=== PATIENT | male | born 1955 | race Caucasian/White ===

== ENCOUNTER 2016-10-31 08:26 | Emergency (ER) | payer BC, OTHER ==
[2016-10-31 08:34] VITALS: TEMP 98; BMI 28.3
--- NOTE | 2016-10-31 08:48 | PDOC ---
History of Present Illness - General Chief Complaint: Nasal Bleeding Stated Complaint: NOSE BLEEDING Time Seen by Provider: 10/31/16 08:27 History Source: Patient Exam Limitations: No Limitations - History of Present Illness Initial Comments: 10/31/16 08:34 This is a 61 yo M with a history of CAD s/p KS and stent presenting to the ER with a complaint of epistaxis According to patient's , he has a propensity to blow his nose really hard AND pick at himself This morning, he blew his nose very hard 4-5 times This resulted in bleeding from the left nare No other complaints - hematuria, hemetemsis, rectal bleeding No headache Pt became concerned when he was unable to stop his bleeding and came to the ER PMH: KS with stent x 2 PSH: trigger finger x 3 left hand Meds: Metoprolol, Aspirin, Atorvastatin, and an additional med (pt does not have a list) ALL: NKDA Social: and unemployed, Tobacco never GENERAL/CONSTITUTIONAL: No: fever, chills, weakness, loss of appetite. HEAD, EYES, EARS, NOSE AND THROAT: Yes: epistaxis No: change in vision, ear pain , CARDIOVASCULAR: No: chest pain, lightheadedness, palpitations, syncope RESPIRATORY: No: cough, shortness of breath, wheezing, hemoptysis, stridor. GASTROINTESTINAL: No: nausea, vomiting, diarrhea, abdominal cramping, rectal bleeding, constipation. GENITOURINARY: No: dysuria, hematuria, frequency, urgency, flank pain. MUSCULOSKELETAL: No: back pain, neck pain, joint pain, muscle swelling or pain SKIN : No: lesions, pallor, rash or easy bruising. NEUROLOGIC: No: headache, vertigo, paresthesias, weakness ENDOCRINE: No: unexplained weight gain or loss HEMATOLOGIC/LYMPHATIC: No: anemia, easy bleeding, swelling nodes. GENERAL: The patient is in no acute distress. HEAD: Normal with no signs of trauma. EYES: PERRLA, EOMI, sclera anicteric, conjunctiva clear. ENT: dried blood of the nare and over the mouth, no active bleeding noted, no septal hematoma NECK: Normal range of motion, supple without lymphadenopathy, JVD, or masses. LUNGS: Breath sounds equal, clear to auscultation bilaterally. No wheezes, and no crackles. HEART:Regular rate and rhythm, normal S1 and S2 without murmur, rub or gallop. ABDOMEN: Soft, nontender, normoactive bowel sounds. No guarding, no rebound. No masses palpable. EXTREMITIES: Normal range of motion, no edema. No clubbing or cyanosis. No erythema, or tenderness. NEUROLOGICAL: Cranial nerves II through XII grossly intact. Normal speech. No focal neurological deficits. MUSCULOSKELETAL: Back non-tender to palpation, no CVA tenderness SKIN: Warm, Dry, normal turgor, no rashes or lesions noted. Past History - Past Medical History Allergies/Adverse Reactions: Allergies Allergy/AdvReac Type Severity Reaction Status Date / Time No Known Allergies Allergy Verified 10/31/16 08:27 Home Medications: Ambulatory Orders Atorvastatin Ca [Lipitor] 40 mg PO DAILY 10/31/16 Lisinopril [Zestril] 2.5 mg PO DAILY 10/31/16 Metoprolol Succinate [Toprol Xl -] 25 mg PO DAILY 10/31/16 Prasugrel HCl [Effient] 5 mg PO DAILY 10/31/16 Anemia: No Asthma: No Cancer: No Cardiac Disorders: Yes ([place] 01/2014) CVA: No COPD: No CHF: No Dementia: No Diabetes: No GI Disorders: No Disorders: No HTN: No Hypercholesterolemia: Yes Liver Disease: No Seizures: No Thyroid Disease: No - Surgical History Abdominal Surgery: No Appendectomy: No Cardiac Surgery: Yes (STENTS X2 S/P [place]) Cholecystectomy: No Lung Surgery: No Neurologic Surgery: No Orthopedic Surgery: No - Psycho/Social/Smoking Cessation Hx Anxiety: No Suicidal Ideation: No Smoking History: Never smoked Information on smoking cessation initiated: No Hx Alcohol Use: No Drug/Substance Use Hx: No Substance Use Type: None *Physical Exam - Vital Signs Last Vital Signs Temp Pulse Resp BP Pulse Ox 98 F 106 H 16 130/93 100 10/31/16 08:27 10/31/16 08:27 10/31/16 08:27 10/31/16 08:27 10/31/16 08:27 ED Treatment Course - LABORATORY CBC & Chemistry Diagram: 10/31/16 09:25 Medical Decision Making - Medical Decision Making 10/31/16 08:48 Epistaxis which has resolved Will observe in the ER for more time until we are sure this will not return Pt counselled to AVOID any additional trauma to the nose (picking, blowing, sneezing forcefully) Pt asked to obtain a list of his meds and medical problems for his wallet Pt can follow up with PMD or return to the ER for any other concerns or complaints Clinical Impression: Epistaxis 10/31/16 09:13 Pt repeatedly blowing/sniffling States he feels lightheaded Placed on monitor immediately HR:74 O2=97 Will do cbc 10/31/16 09:14 Pt at this time refusing rapid rhino 10/31/16 10:23 Laboratory Tests 10/31/16 09:25 WBC 11.0 H D Hgb 13.5 D Hct 42.8 Plt Count 225 Neutrophils % 70.3 Lymphocytes % 21.6 D Pt agreeable to cautarization small area of septum cauterized Will monitor for another 15 minutes to observe if this has helped 10/31/16 12:25 Pt monitored for more than 1 hour No epistaxis however her then began oozing from the left nare again Pt asked to apply pressure as he still is refusing a rapid rhino (pt states he can not return to work with this object in his nose) Pt states he does not Call placed to Dr Wagner Will send to ENT Dr. Wagner is able to see this patient Pt is bringing him to see Dr. Wagner. Pt ambulatory out of the ER *DC/Admit/Observation/Transfer Diagnosis at time of Disposition: Epistaxis - Discharge Dispostion Disposition: HOME Condition at time of disposition: Stable Admit: No - Referrals Referrals: Devang Wagner MD [Staff Physician] - Rolo Archer MD [Primary Care Provider] - - Patient Instructions Printed Discharge Instructions: DI for Nosebleed, Nosebleeds (Alternative Therapy) Additional Instructions: Michael Wagner will see you TODAY at 2:30 You must be there before 2:15pm I am sorry that you had a nose bleed today Please remember to avoid any trauma to the area (blowing your nose, picking your nose or sneezing forcefully) for the next 24 -48 hours Please return to the ER if your symptoms recur Remember to create for yourself a list of your meds and medical problems (to keep in your wallet) - Post Discharge Activity Work/School Note: Back to Work
[2016-10-31] MEDS ORDERED: LIDO 2%/EPI 1:200000 PRESRVFRE (20 ML SDVIAL) ONE (09:08)
[2016-10-31 09:33] LABS: BASOPHIL 0.6 % (0-2.0); EOSINOPHIL 0.6 % (0-4.5); MCH 27.7 pg (25.7-33.7); MCHC 31.5 g/dl (32.0-35.9); MEAN CELL VOLUME 87.8 fl (80-96); MEAN PLT VOLUME 8.6 fl (7.5-11.1); NEUTROPHILS 70.3 % (42.8-82.8); PLATELET COUNT 225 K/MM3 (134-434); RDW 13.5 % (11.9-15.9)
[2016-10-31 11:34] VITALS: BP 101/73; PULSE 100
== END 2016-10-31 12:58 | disposition home or self-care (01) ==
LOC: SUPCPDRO 08:26 → FER 08:26
DX: R04.0 Epistaxis (principal); I25.2 Old myocardial infarction; E78.00 Pure hypercholesterolemia, unspecified; Z95.5 Presence of coronary angioplasty implant and graft; Z79.84 Long term (current) use of oral hypoglycemic drugs; Z79.82 Long term (current) use of aspirin
CPT/HCPCS: 36415; 85025; 99282-25

== ENCOUNTER 2016-10-31 15:03 | Emergency (ER) | payer BC ==
[2016-10-31 15:18] VITALS: TEMP 98; BMI 28.3
[2016-10-31] MEDS ORDERED: SODIUM CHLORIDE 1,000 ML IV ONE ×2 (15:37→16:28)
[2016-10-31] MEDS ORDERED: DIPHTH,PERTUSS(ACELL),TET 0.5 ML DISP.SYRIN IM ONE (15:37)
[2016-10-31 15:42] LABS: BASOPHIL 0.3 % (0-2.0); MCHC 31.5 g/dl (32.0-35.9); MEAN CELL VOLUME 88.9 fl (80-96); MEAN PLT VOLUME 9.3 fl (7.5-11.1); NEUTROPHILS 90.8 % (42.8-82.8); PLATELET COUNT 264 K/MM3 (134-434); RDW 14.3 % (11.9-15.9); WHITE BLOOD COUNT 18.9 K/mm3 (4.0-10.0)
--- NOTE | 2016-10-31 15:42 | PDOC ---
History of Present Illness - General History Source: Patient Exam Limitations: No Limitations - History of Present Illness Initial Comments: 10/31/16 15:42 The patient is a 61-year-old man, accompanied by spouse, with a significant past medical history of hypercholesterolemia, myocardial infarction x2 and coronary artery disease who presents to the emergency department for further evaluation of a sustained left frontal laceration s/p loss of consciousness today. As per patients , the patient was informed by his Ditcher, Dr. Gio Sparrow to stop his Efient medications yesterday. He reports that his last dose was yesterday morning and he did not take any today. He was in [facility] in [facility] for evaluation of left nasal epistaxis. Patient was ultimately discharged and sent over ENT Specialist, Dr. Ambrocio's office, for which he performed posterior nasal packing, which he tolerated well. No pain. He admits that during the procedure, he felt slightly lightheaded and was informed that he was slightly hypotensive. He left the office and his lightheadedness worsened as he leaned over the wall and closed his eyes and lost consciousness, injuring his head. He denies ever losing consciousness in the past. He states he woke up immediately after syncopal episode, approximately 5 seconds after. He admits he had nothing to eat all day. Patient current reports pain only upon the laceration site. Tetanus vaccination is not updated. He denies headache, dizziness, palpitations. He denies chest pain, shortness of breath, fever, chills, cough, visual changes, tongue biting, bowel/bladder incontinence. Allergies: None Known Past Surgical History: Stent placement x2. Social History: . Unemployed. Never smoked. No ETOH and recreational drug use. Primary Care Physician: Dr. Rolo Archer [phone]/ [phone] Ditcher: Dr. Gio Sparrow [phone] <Beata Lacey - Last Filed: 10/31/16 16:41> <Waldo Toribio - Last Filed: 10/31/16 17:10> - General Chief Complaint: Syncope/Near Syncope Stated Complaint: FALL Time Seen by Provider: 10/31/16 15:16 Past History <Beata Lacey - Last Filed: 10/31/16 16:41> - Past Medical History Anemia: No Asthma: No Cancer: No Cardiac Disorders: Yes ([place] 01/2014) CVA: No COPD: No CHF: No Dementia: No Diabetes: No GI Disorders: No Disorders: No HTN: No Hypercholesterolemia: Yes Liver Disease: No Seizures: No Thyroid Disease: No - Surgical History Abdominal Surgery: No Appendectomy: No Cardiac Surgery: Yes (STENTS X2 S/P [place]) Cholecystectomy: No Lung Surgery: No Neurologic Surgery: No Orthopedic Surgery: No - Psycho/Social/Smoking Cessation Hx Anxiety: No Suicidal Ideation: No Smoking History: Never smoked Hx Alcohol Use: No Drug/Substance Use Hx: No Substance Use Type: None <Waldo Toribio - Last Filed: 10/31/16 17:10> - Past Medical History Allergies/Adverse Reactions: Allergies Allergy/AdvReac Type Severity Reaction Status Date / Time No Known Allergies Allergy Verified 10/31/16 08:27 Home Medications: Ambulatory Orders Atorvastatin Ca [Lipitor] 40 mg PO DAILY 10/31/16 Lisinopril [Zestril] 2.5 mg PO DAILY 10/31/16 Metoprolol Succinate [Toprol Xl -] 25 mg PO DAILY 10/31/16 Prasugrel HCl [Effient] 5 mg PO DAILY 10/31/16 Review of Systems - Review of Systems Constitutional: No: Chills, Fever Respiratory: No: Cough, Shortness of Breath Cardiac (ROS): Yes: Syncope. No: Chest Pain, Edema, Palpitations ABD/GI: No: Diarrhea, Nausea, Vomiting Musculoskeletal: No: Back Pain, Joint Pain, Muscle Pain, Neck Pain Neurological: No: Headache, Weakness, Ataxia All Other Systems: Reviewed and Negative <Waldo Toribio - Last Filed: 10/31/16 17:10> *Physical Exam - Vital Signs Last Vital Signs Temp Pulse Resp BP Pulse Ox 98.0 F 89 18 113/68 100 10/31/16 15:14 10/31/16 15:14 10/31/16 15:14 10/31/16 15:14 10/31/16 15:14 - Physical Exam Comments: 10/31/16 15:43 General: Patient is alert and in no acute distress. Speech is clear and appropriate. Head: Atraumatic and nontender. HEENT: Pupils are equal round and reactive to light, extraocular movements are intact. The tympanic membranes are clear, no hemotympanum. No facial deformity/ tenderness, no septal hematoma. The oropharynx is clear. Neck: The trachea is midline, there is no stridor. There is no midline cervical spine tenderness, full range of motion of neck. Chest: Nontender, no ecchymosis or abrasions. Heart: S1-S2, regular rate and rhythm. No murmurs. Lungs: Clear to auscultation bilaterally. Symmetric chest rise. Abdomen: Soft/nontender/nondistended. Bowel sounds are normal. There is no abdominal or flank ecchymosis. Back/Pelvis: There is no midline spinal tenderness or step-off. Pelvis is stable and nontender. Extremities: There is no extremity deformity or joint swelling. No focal bony tenderness throughout. 2+ distal pulses throughout. Neuro: Alert and oriented x3. Cranial nerves II through XII are intact. 5 out of 5 motor strength x4 extremities. Xcgyra-vbfw-[id number] is intact. No pronator drift. Gait is stable. Skin: +There is an approximately 1.5 cm linear laceration above the left eyebrow. No abrasions/hematomas. Psych: Affect is appropriate. <Beata Lacey - Last Filed: 10/31/16 16:41> - Vital Signs Last Vital Signs Temp Pulse Resp BP Pulse Ox 98.0 F 89 18 113/68 100 10/31/16 15:14 10/31/16 15:14 10/31/16 15:14 10/31/16 15:14 10/31/16 15:14 <Waldo Toribio - Last Filed: 10/31/16 17:10> Heart Score/ECG Review #1 ECG reviewed & interpreted by me at: 15:41 General ECG Interpretation: Sinus Rhythm, Normal Rate (88), Normal Intervals, No acute ischemic changes (old inferior and lateral Q waves) <Waldo Toribio - Last Filed: 10/31/16 17:10> ED Treatment Course - LABORATORY CBC & Chemistry Diagram: 10/31/16 15:29 10/31/16 15:29 - RADIOLOGY Radiograph Interpretation: 10/31/16 16:27 EXAM: RAD/CHEST X-RAY PORTABLE IMPRESSION: Since 01/31/2015, the cardiac silhouette remains within normal limits in size with mild unfolding of the aortic arch and mild elevation of the right hemidiaphragm. The lung is clear. Mediastinum and visualized osseous structures appear intact. Notes made of lucency under the left hemidiaphragm likely air within the gastric fundus. <Beata Lacey - Last Filed: 10/31/16 16:41> - LABORATORY CBC & Chemistry Diagram: 10/31/16 15:29 10/31/16 15:29 - RADIOLOGY Radiology Studies Ordered: Category Date Time Status HEAD CT WITHOUT CONTRAST [CT] Stat CT Scan 10/31/16 15:17 Ordered CHEST X-RAY PORTABLE* [RAD] Stat Radiology 10/31/16 15:16 Ordered <Waldo Toribio - Last Filed: 10/31/16 17:10> Medical Decision Making - Medical Decision Making 10/31/16 16:30 A call was placed to patient's Ditcher, Dr. Gio Sparrow at [phone]. Informed by office that Ditcher, Dr. Justa Fox is erosion control coordinator. <Beata Lacey - Last Filed: 10/31/16 16:41> - Medical Decision Making 10/31/16 15:38 A portion of this note was documented by scribe services under my direction. I have reviewed the details of the note, within reason, and agree with the documentation with the following case summary and management plan written by me. 61-year-old male with history of CAD on Efient presents with syncopal episode. The patient was in his usual state of good health, this morning had epistaxis and was seen in the [place] ED, referred to ENT for packing, which he tolerated well and which controlled the bleeding. Patient started feeling lightheaded while at ENT office, when he got home and was waiting for the elevator, became more lightheaded and ultimately lost consciousness, falling to the ground and hitting the left side of his head. He awoke almost immediately, about 5 seconds after losing consciousness, and was brought to the ED. Complaining of only isolated discomfort to the laceration area, no other complaints whatsoever. Vital signs normal, blood pressure 113/80. Exam as noted, trauma exam unremarkable except for 1.5 cm left eyebrow laceration 61-year-old male with syncopal episode, likely orthostatic in the setting of epistaxis and minimal by mouth intake today, now with head injury on fall but neurologically intact. Patient on Effient, stopped yesterday morning. Low clinical suspicion for ACS or arrhythmia. Check CT head Labs, EKG IV fluids, provide food Update tetanus, laceration repair If above is within normal limits, will speak with Dr. Sparrow, but expect that he can be discharged. 10/31/16 16:18 White count 18.9, up from 11 this morning. Hemoglobin 12.6, stable from 13.5 this morning. Creatinine 1.4 with slightly elevated BUN, suggestive of dehydration which is consistent from the history. Trop negative. CXR wnl. CT head pending. 10/31/16 17:00 LACERATION REPAIR: The skin was prepped with Saline. 2% lidocaine was injected subcutaneously for local anesthesia. Normal saline lavage, high pressure, high volume was performed. 5-0 Nylon, simple interrupted sutures, x 3 were placed. Bacitracin and dry sterile dressing were applied. Patient was advised regarding signs and symptoms of infection that would indicate a need to see the doctor immediately, as well as instructions for suture removal. 10/31/16 17:01 CT head without acute injury/abnormality. Discussed case with Dr. Tim at bedside, covering Dr. Sparrow, who will review case/prior echo and assist with dispo. Patient was signed out to the oncoming ED physician to reassess the patient after IV fluids, f/u with Dr. Tim, and dispo accordingly. <Waldo Toribio - Last Filed: 10/31/16 17:10> *DC/Admit/Observation/Transfer - Attestations Scribe Attestion: 10/31/16 15:43 Documentation prepared by Beata Lacey, acting as medical customer service representative for Waldo Toribio MD. <Beata Lacey - Last Filed: 10/31/16 16:41> <Waldo Toribio - Last Filed: 10/31/16 17:10> Diagnosis at time of Disposition: Orthostatic syncope Laceration of eyebrow Qualifiers: Encounter type: initial encounter Laterality: left Qualified Code(s): S01.112A - Laceration without foreign body of left eyelid and periocular area, initial encounter - Referrals Referrals: Rolo Archer MD [Primary Care Provider] - - Patient Instructions Printed Discharge Instructions: DI for Orthostatic Hypotension, DI for Syncope in Adults (Fainting), DI for Laceration Repair -- Simple Additional Instructions: Activity as tolerated. Stay well hydrated. Blood tests today showed evidence of dehydration, so you were given IV fluids. Your overall blood level is within normal limits. There is no evidence of acute heart injury or arrhythmia. Three stitches were placed to fix the eyebrow laceration. Maintain current dressing for 24 hours, then bacitracin dressing changes twice daily for 5 days. Avoid soaking or scrubbing. Return to the ED in 5-7 days for suture removal. Your tetanus vaccine was updated today. Continue your medications as previously prescribed by your physician. STOP Effient as per Dr. Sparrow. You should follow up with Dr. Archer and Dr. Sparrow as soon as possible regarding today's emergency department visit. Return to the emergency department for any new or concerning symptoms, particularly severe headache, chest pain or persistent light-headedness, redness or swelling or pus or bleeding from the laceration.
[2016-10-31 16:08] LABS: CALCIUM 8.5 mg/dL (8.5-10.1); INR 1.23 (0.82-1.09); PROTHROMBIN TIME (PATIENT) 13.6 SEC (9.98-11.88)
[2016-10-31 16:13] LABS: BILIRUBIN,TOTAL 1.3 mg/dL (0.2-1.0); CREATININE 1.4 mg/dL (0.7-1.3); TOT PROT 6.7 g/dl (6.4-8.2); TROPONIN I 0.02 ng/ml (0.00-0.05)
--- NOTE | 2016-10-31 17:40 | CONSULT ---
Cardiology Consult (text) - Consultation Consultation Note: CC: syncope 61-year-old with h/o CAD s/p inferior NV 01/2015 and PCI to mRCA and OM1 ( preserved EF - residual 70-80% mLAD lesion) and HL p/w syncopal episode c/b laceration of forehead after severe epistaxis today. Evaluated at [place] [facility] this morning for significant epistaxis, was sent to ENT afterwards where he had cauterization and bleeding stopped. Throughout the day was experiencing intermittent lightheadedness, predominantly exacerbated by going from sitting to standing or with prolonged walking. BP noted to be slightly low at ENT visit. On returning home after ENT visit, he had worsened dizziness and syncopal episode with + brief LOC. Episode was witnessed and he was unconscious for a few seconds. No prior history of presyncope or syncope. [place] in his usual state of health until this morning. No f/c/s, n/v/d, cough, congestion, myalgias, visual disturbances. No cp, palps, sob, orthopnea, pnd, le edema, claudication, recent decrease in functional capacity. Did not take his asa or effient today. IN ER has received IVF. Head CT negative and stitches placed to forehead laceration . cards: Dr. Sparrow PMx/Past Surgical History: per hpi Social History: . Never smoked. No ETOH and recreational drug use. fam hx: No family hx of heart disease ros: per hpi Ambulatory Orders Atorvastatin Ca [Lipitor] 40 mg PO DAILY 10/31/16 Lisinopril [Zestril] 2.5 mg PO DAILY 10/31/16 Metoprolol Succinate [Toprol Xl -] 25 mg PO DAILY 10/31/16 Prasugrel HCl [Effient] 5 mg PO DAILY 10/31/16 Vital Signs - 24 hr 10/31/16 15:14 Temperature 98.0 F Pulse Rate 89 Respiratory 18 Rate Blood Pressure 113/68 O2 Sat by Pulse 100 Oximetry (%) Intake & Output 10/29/16 10/30/16 10/31/16 11/01/16 07:59 07:59 07:59 07:59 Weight 170 lb NAD, calm JVD flat, neck supple CTAB, nl effort RRR nl s1, s2 no m/r/g + bs soft nt nd ext without e/c/c aaox3 no carotid bruits + dp/pt CBC, BMP 10/31/16 15:29 10/31/16 15:29 Laboratory Tests 10/31/16 10/31/16 10/31/16 09:25 15:29 15:29 WBC 11.0 H D INR 1.23 H Total Bilirubin 1.3 H AST 13 L D ALT 23 D Alkaline Phosphatase 63 Creatine Kinase 148 Troponin I 0.02 D Albumin 4.0 EKG: NSR, nl axis/intervals. Slighly peaked t waves anteriorly. Inferior and lateral q waves and t wave abnormalities. (no change from prior office EKG from 08/2016) tele: NSR. CXR: clear lung guevara Recent stress echo 06/2016: 10 METS. Prior inferior infarct, no inducible ischemia. 61-year-old with h/o CAD s/p inferior NV 01/2015 and PCI to mRCA and OM1 ( preserved EF - residual 70-80% mLAD lesion) and HL p/w syncopal episode c/b laceration of forehead after severe epistaxis today. syncope - likely related to epistaxis and volume depletion. - EKG without ischemic changes, CE neg x 1. No events on telemetry. CAD s/p inferior NV 01/2015 and PCI to mRCA and OM1 (preserved EF - residual 70- 80% mLAD lesion) - In light of severe epistaxis would stop effient and continue ASA therapy alone. Dr. Sparrow aware. - No signs of ACS as mentioned above. - con't statin, bb, acei. Close monitoring of bp at home, if dizziness persists should discuss with outpatient braiding machine operator regarding need to hold anti -hypertensives. HL - con't home statin Would obtain orthostatic vitals and ambulate patient after IVF done infusing. If orthostatics negative and dizziness has resolved, ok to d/c from CV perspective with outpatient cardiology follow up.
--- NOTE | 2016-10-31 18:31 | PDOC ---
*Physical Exam - Vital Signs Last Vital Signs Temp Pulse Resp BP Pulse Ox 98.0 F 89 18 113/68 100 10/31/16 15:14 10/31/16 15:14 10/31/16 15:14 10/31/16 15:14 10/31/16 15:14 ED Treatment Course - LABORATORY CBC & Chemistry Diagram: 10/31/16 15:29 10/31/16 15:29 - ADDITIONAL ORDERS Additional order review: Laboratory Results 10/31/16 10/31/16 15:29 15:29 INR 1.23 H Sodium 139 Potassium 4.1 Chloride 104 Carbon Dioxide 23 Anion Gap 12 BUN 43 H D Creatinine 1.4 H D Creat Clearance w eGFR 51.52 Random Glucose 205 H D Calcium 8.5 Total Bilirubin 1.3 H AST 13 L D ALT 23 D Alkaline Phosphatase 63 Creatine Kinase 148 Troponin I 0.02 D Total Protein 6.7 Albumin 4.0 10/31/16 15:29 RBC 4.48 MCV 88.9 MCHC 31.5 L RDW 14.3 MPV 9.3 Neutrophils % 90.8 H Lymphocytes % 5.6 L Monocytes % 3.3 L Eosinophils % 0.0 Basophils % 0.3 - Medications Given in the ED: ED Medications Discontinued Medications Generic Name Dose Route Start Last Admin Trade Name Freq PRN Reason Stop Dose Admin Diphtheria/Tetanus/Acell Pertussis 0.5 ml 10/31/16 15:37 10/31/16 16:05 Boostrix - IM 10/31/16 15:38 0.5 ml .ONCE ONE Administration Sodium Chloride 1,000 mls @ 1,000 mls/hr 10/31/16 15:37 10/31/16 15:54 Normal Saline - IV 10/31/16 16:36 1,000 mls/hr ONCE ONE Administration Sodium Chloride 1,000 mls @ 1,000 mls/hr 10/31/16 16:28 10/31/16 16:32 Normal Saline - IV 10/31/16 17:27 1,000 mls/hr ONCE ONE Administration Medical Decision Making - Medical Decision Making 10/31/16 18:30 Sign-out received from outgoing Emergency Physician Dr. Toribio Pt interviewed and examined Ancillary studies reviewed Case discussed in detail with oncoming Emergency Physician including history, physical exam and ancillary studies. Vital Signs Temp Pulse Resp BP Pulse Ox 98.0 F 89 18 113/68 100 10/31/16 15:14 10/31/16 15:14 10/31/16 15:14 10/31/16 15:14 10/31/16 15:14 Case discussed with global compensation director Dr. Mark. The patient is cleared from her perspective. She requests orthostatics. It is negative here after IVF. Patient ambulated without any symptoms. Leukocytosis is likely reactive. I had instructed the patient to return to ED if there are any further episodes. Pt verbalizes understanding and agrees with plan. I discussed the physical exam findings, ancillary test results and final diagnoses with the patient. I answered all of the patient's questions. The patient was satisfied with the care received and felt comfortable with the discharge plan and treatment plan. The patient will call their primary care physician within 24 hours to arrange follow-up and will return to the Emergency Department with any new, persistant or worsening symptoms. *DC/Admit/Observation/Transfer Diagnosis at time of Disposition: Orthostatic syncope Laceration of eyebrow Qualifiers: Encounter type: initial encounter Laterality: left Qualified Code(s): S01.112A - Laceration without foreign body of left eyelid and periocular area, initial encounter - Discharge Dispostion Disposition: HOME Condition at time of disposition: Improved - Referrals Referrals: Rolo Archer MD [Primary Care Provider] - - Patient Instructions Printed Discharge Instructions: DI for Syncope in Adults (Fainting), DI for Orthostatic Hypotension, DI for Laceration Repair -- Simple Additional Instructions: Activity as tolerated. Stay well hydrated. Blood tests today showed evidence of dehydration, so you were given IV fluids. Your overall blood level is within normal limits. There is no evidence of acute heart injury or arrhythmia. Three stitches were placed to fix the eyebrow laceration. Maintain current dressing for 24 hours, then bacitracin dressing changes twice daily for 5 days. Avoid soaking or scrubbing. Return to the ED in 5-7 days for suture removal. Your tetanus vaccine was updated today. Continue your medications as previously prescribed by your physician. STOP Effient as per Dr. Sparrow. You should follow up with Dr. Archer and Dr. Sparrow as soon as possible regarding today's emergency department visit. Return to the emergency department for any new or concerning symptoms, particularly severe headache, chest pain or persistent light-headedness, redness or swelling or pus or bleeding from the laceration. - Post Discharge Activity
[2016-10-31 18:51] VITALS: BP 147/85; PULSE 83
--- NOTE | 2016-10-31 23:54 | EKG ---
Test Reason : Blood Pressure : / mmHG Vent. Rate : 088 BPM Atrial Rate : 088 BPM P-R Int : 130 ms QRS Dur : 086 ms QT Int : 354 ms P-R-T Axes : 047 -18 002 degrees QTc Int : 428 ms NORMAL SINUS RHYTHM INFERIOR INFARCT (CITED ON OR BEFORE 01-FEB-2015) ABNORMAL ECG WHEN COMPARED WITH ECG OF 01-FEB-2015 09:14, NO SIGNIFICANT CHANGE WAS FOUND Confirmed by JOAN GALLAGHER, ALEJANDRA ([id number]) on 10/31/2016 11:54:30 PM Referred By: Confirmed By:ALEJANDRA FRANCO MD
== END 2016-10-31 18:55 | disposition home or self-care (01) ==
LOC: JER 15:03
PROC: 08QPXZZ Repair Left Upper Eyelid, External Approach (ICD-10-PCS; principal; 2016-10-31)
DX: S01.112A Laceration without foreign body of left eyelid and periocular area, initial encounter (principal); I95.1 Orthostatic hypotension; E78.00 Pure hypercholesterolemia, unspecified; I25.2 Old myocardial infarction; Z95.5 Presence of coronary angioplasty implant and graft
CPT/HCPCS: 36415; 70450-TC; 71010-TC; 80053; 82550; 84484; 85025; 85610; 90715; 93005; 93010; 99284-25

== ENCOUNTER 2016-12-09 14:58 | Emergency (ER) | payer BC ==
[2016-12-09 15:05] VITALS: BP 144/63; PULSE 93; TEMP 98; BMI 28.6
[2016-12-09] MEDS ORDERED: SILVER NITRATE 75% APPLIC STCK 1 PKT EACH ONE (15:28)
[2016-12-09] MEDS ORDERED: SILVER NITRATE 75% APPLIC STCK 1 PKT EACH TP ONE (15:30)
--- NOTE | 2016-12-09 15:39 | PDOC ---
History of Present Illness - General Stated Complaint: SEES BLOOD IN HIS NOSE Time Seen by Provider: 12/09/16 15:13 History Source: Patient Exam Limitations: No Limitations - History of Present Illness Initial Comments: 12/09/16 15:31 61 yr male with history of bloody nose last month saw ENT saturday had cautery and gel placed for small nose bleed. Pt here today because he noticed some slight oozing of blood is concerned . no headache no active bleeding now. Pt is on blood thinners. Past History - Past Medical History Allergies/Adverse Reactions: Allergies Allergy/AdvReac Type Severity Reaction Status Date / Time No Known Allergies Allergy Verified 12/09/16 15:05 Home Medications: Ambulatory Orders Atorvastatin Ca [Lipitor] 40 mg PO DAILY 10/31/16 Lisinopril [Zestril] 2.5 mg PO DAILY 10/31/16 Metoprolol Succinate [Toprol Xl -] 25 mg PO DAILY 10/31/16 Prasugrel HCl [Effient] 5 mg PO DAILY 10/31/16 Aspirin [Aspirin EC] 81 mg PO ASDIR 12/09/16 Anemia: No Asthma: No Cancer: No Cardiac Disorders: Yes ([place] 01/2014) CVA: No COPD: No CHF: No Dementia: No Diabetes: No GI Disorders: No Disorders: No HTN: No Hypercholesterolemia: Yes Liver Disease: No Seizures: No Thyroid Disease: No - Surgical History Abdominal Surgery: No Appendectomy: No Cardiac Surgery: Yes (STENTS X2 S/P [place]) Cholecystectomy: No Lung Surgery: No Neurologic Surgery: No Orthopedic Surgery: No - Psycho/Social/Smoking Cessation Hx Anxiety: No Suicidal Ideation: No Smoking History: Never smoked Information on smoking cessation initiated: No Hx Alcohol Use: No Drug/Substance Use Hx: No Substance Use Type: None *Physical Exam - Vital Signs Last Vital Signs Temp Pulse Resp BP Pulse Ox 98 F 93 H 18 144/63 98 12/09/16 15:01 12/09/16 15:01 12/09/16 15:01 12/09/16 15:01 12/09/16 15:01 - Physical Exam General Appearance: Yes: Nourished, Appropriately Dressed HEENT: positive: EOMI, MARISSA, TMs Normal, Pharynx Normal, Nasal Congestion, Other (scant ooze from left nare ) Neck: positive: Supple Respiratory/Chest: positive: Lungs Clear, Normal Breath Sounds Cardiovascular: positive: Regular Rhythm, Regular Rate Gastrointestinal/Abdominal: positive: Normal Bowel Sounds, Soft Extremity: positive: Normal Capillary Refill, Normal Inspection, Normal Range of Motion Integumentary: positive: Normal Color, Dry, Warm Neurologic: positive: Fully Oriented, Alert, Normal Mood/Affect, Normal Response , Motor Strength 5/5 Procedures - Additional Procedures Progress: 12/09/16 15:41 silver nitrate stick placed to left nare, mild ooze noted, small Medical Decision Making - Medical Decision Making 12/09/16 15:41 cc: nose bleeding will cautery left nare small area of bright red blood oozing pt has f/u apt tomorrow with ENT I have discussed in detail with pt and his how to care for nosebleed at home all questions asked and answered before discharge pt stable and satisfied with care at dc. *DC/Admit/Observation/Transfer Diagnosis at time of Disposition: Epistaxis - Discharge Dispostion Disposition: HOME Condition at time of disposition: Good - Referrals Referrals: Rolo Archer MD [Primary Care Provider] - - Patient Instructions Printed Discharge Instructions: DI for Nosebleed Additional Instructions: nothing in the nose except saline spray use tonight follow with tomorrow as planned return if any worsening symptoms
== END 2016-12-09 15:41 | disposition home or self-care (01) ==
LOC: JERFT 14:58
PROC: 0W3Q7ZZ Control Bleeding in Respiratory Tract, Via Natural or Artificial Opening (ICD-10-PCS; principal; 2016-12-09)
DX: R04.0 Epistaxis (principal); I25.2 Old myocardial infarction; Z95.5 Presence of coronary angioplasty implant and graft; E78.00 Pure hypercholesterolemia, unspecified; Z79.01 Long term (current) use of anticoagulants
CPT/HCPCS: 99281-25

== ENCOUNTER 2016-12-11 07:13 | Emergency (ER) | payer BC ==
[2016-12-11 07:31] VITALS: BMI 28.6
--- NOTE | 2016-12-11 07:42 | PDOC ---
History of Present Illness - General History Source: Patient Exam Limitations: No Limitations - History of Present Illness Initial Comments: 12/11/16 08:00 The patient is a 61 year old male, with a significant past medical history of CAD, [place] (2013) s/p cardiac stents (x2) and HLD, who presents to the emergency department with epistaxis onset last night. The patient notes that he has an appointment to see the ENT today at 8:50am. This is the patient's 3rd visit within the last month for epistaxis. In his first visit on 10/31/2016, he was referred to the ENT Dr. Eckert who cauterized the active bleeding site, helping to stop the bleeding. He notes that he bought an air purifier yesterday. The patient denies chest pain, shortness of breath, headache and dizziness. Denies fever, chills, nausea, vomit, diarrhea and constipation. Allergies: None Past surgical history: Cardiac Stents (x2) Social history: No alcohol, tobacco or drug use reported PMD - Dr. Rolo Archer <Mark Gordon - Last Filed: 12/11/16 07:59> - General History Source: Patient Exam Limitations: No Limitations <Rosa Maria Randall - Last Filed: 12/11/16 08:17> - General Chief Complaint: Nasal Bleeding Stated Complaint: NOSEBLEED Time Seen by Provider: 12/11/16 07:34 Past History <Mark Gordon - Last Filed: 12/11/16 07:59> - Past Medical History Anemia: No Asthma: No Cancer: No Cardiac Disorders: Yes ([place] 01/2014) CVA: No COPD: No CHF: No Dementia: No Diabetes: No GI Disorders: No Disorders: No HTN: No Hypercholesterolemia: Yes Liver Disease: No Seizures: No Thyroid Disease: No Other medical history: nose bleed - Surgical History Abdominal Surgery: No Appendectomy: No Cardiac Surgery: Yes (STENTS X2 S/P [place]) Cholecystectomy: No Lung Surgery: No Neurologic Surgery: No Orthopedic Surgery: No - Psycho/Social/Smoking Cessation Hx Anxiety: No Suicidal Ideation: No Smoking History: Never smoked Information on smoking cessation initiated: No Hx Alcohol Use: No Drug/Substance Use Hx: No Substance Use Type: None <Rosa Maria Randall - Last Filed: 12/11/16 08:17> - Past Medical History Allergies/Adverse Reactions: Allergies Allergy/AdvReac Type Severity Reaction Status Date / Time No Known Allergies Allergy Verified 12/11/16 07:19 Home Medications: Ambulatory Orders Atorvastatin Ca [Lipitor] 40 mg PO DAILY 10/31/16 Lisinopril [Zestril] 2.5 mg PO DAILY 10/31/16 Metoprolol Succinate [Toprol Xl -] 25 mg PO DAILY 10/31/16 Prasugrel HCl [Effient] 5 mg PO DAILY 10/31/16 Aspirin [Aspirin EC] 81 mg PO ASDIR 12/09/16 Review of Systems - Review of Systems Able to Perform ROS?: Yes Comments:: 12/11/16 08:00 GENERAL/CONSTITUTIONAL: No fever or chills. No weakness. HEAD, EYES, EARS, NOSE AND THROAT: +Epistaxis. No change in vision. No ear pain or discharge. No sore throat. CARDIOVASCULAR: No chest pain or shortness of breath RESPIRATORY: No cough, wheezing, or hemoptysis. GASTROINTESTINAL: No nausea, vomiting, diarrhea or constipation. SKIN: No rash NEUROLOGIC: No headache, vertigo, loss of consciousness, or change in strength/ sensation. ENDOCRINE: No increased thirst. No abnormal weight change HEMATOLOGIC/LYMPHATIC: No anemia, easy bleeding, or history of blood clots. ALLERGIC/IMMUNOLOGIC: No hives or skin allergy. <Mark Gordon - Last Filed: 12/11/16 07:59> *Physical Exam - Vital Signs Last Vital Signs Temp Pulse Resp BP Pulse Ox 109 H 18 162/90 100 12/11/16 07:19 12/11/16 07:19 12/11/16 07:19 12/11/16 07:19 - Physical Exam Comments: 12/11/16 08:01 GENERAL: Awake, alert, and fully oriented, in no acute distress HEAD: No signs of trauma, normocephalic, atraumatic EYES: PERRLA, EOMI, sclera anicteric, conjunctiva clear ENT: Auricles normal inspection, hearing grossly normal, nares patent, oropharynx clear without exudates. Dry blood in bilateral nares and mouth, no active bleeding. NECK: Normal ROM, supple, no lymphadenopathy, JVD, or masses LUNGS: No distress, speaks full sentences, clear to auscultation bilaterally HEART: Regular rate and rhythm, normal S1 and S2, no murmurs, rubs or gallops, peripheral pulses normal and equal bilaterally. EXTREMITIES: Normal inspection, Normal range of motion, no edema. No clubbing or cyanosis. NEUROLOGICAL: Cranial nerves II through XII grossly intact. Normal speech, normal gait, no focal sensorimotor deficits SKIN: Warm, Dry, normal turgor, no rashes or lesions noted. <Mark Gordon - Last Filed: 12/11/16 07:59> - Vital Signs Last Vital Signs Temp Pulse Resp BP Pulse Ox 109 H 18 162/90 100 12/11/16 07:19 12/11/16 07:19 12/11/16 07:19 12/11/16 07:19 <Rosa Maria Randall - Last Filed: 12/11/16 08:17> Medical Decision Making - Medical Decision Making 12/11/16 07:42 A portion of this note was documented by scribe services under my direction. I have reviewed the details of the note, within reason, and agree with the documentation with the following case summary and management plan written by me. Nursing documentation reviewed and incorporated into medical decision making 12/11/16 08:15 This is a 61 yo M with a history of CAD s/p stent on Effient with recurrent epistaxis Pt has an appointment with Dr eckert in 30 minutes Came to the ER because his nose started bleeding this morning No lightheadedness, no chest pain Compressive device placed on pt nose No bleeding noticed Repeat BP: Discharge to Dr Eckert' office now clinical impression: Epistaxis <Rosa Maria Randall - Last Filed: 12/11/16 08:17> *DC/Admit/Observation/Transfer - Attestations Scribe Attestion: 12/11/16 08:00 Documentation prepared by Mark Gordon, acting as medical assistant dermatology for Rosa Maria Randall MD <Mark Gordon - Last Filed: 12/11/16 07:59> - Discharge Dispostion Admit: No <Rosa Maria Randall - Last Filed: 12/11/16 08:17> Diagnosis at time of Disposition: Epistaxis - Discharge Dispostion Disposition: HOME Condition at time of disposition: Stable - Referrals Referrals: Rolo Archer MD [Primary Care Provider] - Gunnar Ambrocio MD [Staff Physician] - - Patient Instructions Printed Discharge Instructions: DI for Nosebleed, Nosebleeds (Alternative Therapy)
[2016-12-11 08:15] VITALS: BP 124/88; PULSE 90
== END 2016-12-11 08:26 | disposition home or self-care (01) ==
LOC: JER 07:13
DX: R04.0 Epistaxis (principal); I25.10 Atherosclerotic heart disease of native coronary artery without angina pectoris; Z95.5 Presence of coronary angioplasty implant and graft; I25.2 Old myocardial infarction; E78.00 Pure hypercholesterolemia, unspecified; Z79.01 Long term (current) use of anticoagulants
CPT/HCPCS: 99282-25

== ENCOUNTER 2016-12-11 09:40 | Emergency (ER) | payer BC ==
--- NOTE | 2016-12-11 09:48 | PDOC ---
History of Present Illness - General History Source: Patient, EMS Exam Limitations: No Limitations - History of Present Illness Initial Comments: 12/11/16 09:59 The patient is a 61 year old male, with a significant past medical history of CAD, [place] (2013) s/p cardiac stents (x2) and HLD, who presents to the emergency department with low blood pressure. The patient was recently seen this morning for epistaxis and was sent over to Dr. Eckert office (ENT) for evaluation. The patient got the nose bleed packed and he currently has no bleeding. Once the packing was done, his blood pressure was 74 systolic and EMS was contacted to bring the patient to the ED for evaluation. On route to the ED the patient's blood pressure was 132/75. The patient denies chest pain, shortness of breath, headache and dizziness. Allergies: None Past surgical history: Cardiac Stents (x2) Social history: No alcohol, tobacco or drug use reported PMD - Dr. Rolo Archer <Mark Gordon - Last Filed: 12/11/16 09:58> - General History Source: Patient Exam Limitations: No Limitations <Rosa Maria Randall - Last Filed: 12/11/16 15:34> - General Stated Complaint: SYNCOPE Past History <Mark Gordon - Last Filed: 12/11/16 09:58> - Past Medical History Anemia: No Asthma: No Cancer: No Cardiac Disorders: Yes ([place] 01/2014) CVA: No COPD: No CHF: No Dementia: No Diabetes: No GI Disorders: No Disorders: No HTN: No Hypercholesterolemia: Yes Liver Disease: No Seizures: No Thyroid Disease: No - Surgical History Abdominal Surgery: No Appendectomy: No Cardiac Surgery: Yes (STENTS X2 S/P [place]) Cholecystectomy: No Lung Surgery: No Neurologic Surgery: No Orthopedic Surgery: No - Psycho/Social/Smoking Cessation Hx Anxiety: No Suicidal Ideation: No Smoking History: Never smoked Hx Alcohol Use: No Drug/Substance Use Hx: No Substance Use Type: None <Rosa Maria Randall - Last Filed: 12/11/16 15:34> - Past Medical History Allergies/Adverse Reactions: Allergies Allergy/AdvReac Type Severity Reaction Status Date / Time No Known Allergies Allergy Verified 12/11/16 07:19 Home Medications: Ambulatory Orders Atorvastatin Ca [Lipitor] 40 mg PO DAILY 10/31/16 Lisinopril [Zestril] 2.5 mg PO DAILY 10/31/16 Metoprolol Succinate [Toprol Xl -] 25 mg PO DAILY 10/31/16 Prasugrel HCl [Effient] 5 mg PO DAILY 10/31/16 Aspirin [Aspirin EC] 81 mg PO ASDIR 12/09/16 Review of Systems - Review of Systems Able to Perform ROS?: Yes Comments:: 12/11/16 09:59 GENERAL/CONSTITUTIONAL: No fever or chills. No weakness. HEAD, EYES, EARS, NOSE AND THROAT: No change in vision. No ear pain or discharge. No sore throat. CARDIOVASCULAR: No chest pain or shortness of breath RESPIRATORY: No cough, wheezing, or hemoptysis. GASTROINTESTINAL: No nausea, vomiting, diarrhea or constipation. GENITOURINARY: No dysuria, frequency, or change in urination. MUSCULOSKELETAL: No joint or muscle swelling or pain. No neck or back pain. SKIN: No rash NEUROLOGIC: No headache, vertigo, loss of consciousness, or change in strength/ sensation. ENDOCRINE: No increased thirst. No abnormal weight change HEMATOLOGIC/LYMPHATIC: No anemia, easy bleeding, or history of blood clots. ALLERGIC/IMMUNOLOGIC: No hives or skin allergy. <Mark Gordon - Last Filed: 12/11/16 09:58> *Physical Exam - Vital Signs Last Vital Signs Temp Pulse Resp BP Pulse Ox 97.6 F 96 H 18 119/85 96 12/11/16 09:49 12/11/16 09:49 12/11/16 09:49 12/11/16 09:49 12/11/16 09:49 - Physical Exam Comments: 12/11/16 09:59 GENERAL: Awake, alert, and fully oriented, in no acute distress HEAD: No signs of trauma, normocephalic, atraumatic EYES: PERRLA, EOMI, sclera anicteric, conjunctiva clear ENT: Auricles normal inspection, hearing grossly normal, nares patent, oropharynx clear without exudates. Moist mucosa NECK: Normal ROM, supple, no lymphadenopathy, JVD, or masses LUNGS: No distress, speaks full sentences, clear to auscultation bilaterally HEART: Regular rate and rhythm, normal S1 and S2, no murmurs, rubs or gallops, peripheral pulses normal and equal bilaterally. ABDOMEN: Soft, nontender, normoactive bowel sounds. No guarding, no rebound. No masses EXTREMITIES: Normal inspection, Normal range of motion, no edema. No clubbing or cyanosis. NEUROLOGICAL: Cranial nerves II through XII grossly intact. Normal speech, normal gait, no focal sensorimotor deficits SKIN: Warm, Dry, normal turgor, no rashes or lesions noted. <Mark Gordon - Last Filed: 12/11/16 09:58> ED Treatment Course - LABORATORY CBC & Chemistry Diagram: 12/11/16 13:58 12/11/16 13:58 <Rosa Maria Randall - Last Filed: 12/11/16 15:34> Medical Decision Making - Medical Decision Making 12/11/16 09:47 A portion of this note was documented by scribe services under my direction. I have reviewed the details of the note, within reason, and agree with the documentation with the following case summary and management plan written by me. Nursing documentation reviewed and incorporated into medical decision making 12/11/16 10:03 This is a 61-year-old male with a history of coronary artery disease status post [place] and stents 2, resumed on his Effient 2 weeks ago who presented to the emergency department with epistaxis. He was seen by Dr. eckert today in the office, unable to cauterize patient was packed. Apparently during the procedure he became flushed, felt lightheaded, blood pressure obtained and was noted to be 74 systolic. Within 2 minutes patient's systolic blood pressure increased to 94. EMS was contacted given patient's prior syncopal events status post cauterization. Upon EMS arrival patient's systolic blood pressure was 134. Patient states he feels well. No chest pain, no shortness of breath, no palpitations, no focal weakness or numbness. Patient has no bleeding. Patient seems to have vasovagal again. 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 Will discharge to follow-up with Dr. Sparrow 12/11/16 11:43 Pt orthostatic Will give bolus NS 12/11/16 15:29 Pt remains orthostatic Will repeat NS bolus Will check labs Laboratory Tests 10/31/16 10/31/16 12/11/16 15:29 15:29 13:58 WBC 18.9 H 16.2 H Hgb 12.6 12.7 Hct 39.9 39.2 Plt Count 264 256 BUN 43 H D Creatinine 1.4 H D 12/11/16 13:58 WBC Hgb Hct Plt Count BUN 33 H D Creatinine 1.0 D Labs demonstrate stable hemoglobin Will discharge to home Pt has eaten I have AGAIN called Dr Sparrow He states pt can CONTINUE aspirin pt should DISCONTINUE Effientt Hold Lisinopril for 2 days Follow up with Dr amaya in the office on SATURDAY I discussed the physical exam findings, ancillary test results and final diagnoses with the patient. I answered all of the patient's questions. The patient was satisfied with the care received and felt comfortable with the discharge plan and treatment plan. The patient will call their primary care physician within 24 hours to arrange follow-up and will return to the Emergency Department with any new, persistent or worsening symptoms. <Rosa Maria Randall - Last Filed: 12/11/16 15:34> *DC/Admit/Observation/Transfer - Attestations Scribe Attestion: 12/11/16 09:59 Documentation prepared by Mark Gordon, acting as medical billing coordinator for RosaM aria Randall MD <Mark Gordon - Last Filed: 12/11/16 09:58> - Discharge Dispostion Admit: No <Rosa Maria Randall - Last Filed: 12/11/16 15:34> Diagnosis at time of Disposition: Vasovagal syncope - Discharge Dispostion Disposition: HOME Condition at time of disposition: Stable - Referrals Referrals: Rolo Archer MD [Primary Care Provider] - Gunnar Amaya MD [Staff Physician] - Deven Sparrow MD [Staff Physician] - - Patient Instructions Printed Discharge Instructions: DI for Syncope in Adults (Fainting), DI for Orthostatic Hypotension, DI for Nosebleed Additional Instructions: Michael Thank you for coming in to the ER today I am sorry that you had a nose bleed today and got lightheaded your blood tests are stable We have given you IV fluids Your medication changes are as follows: CONTINUE aspirin DISCONTINUE Effientt HOLD Lisinopril for 2 days Follow up with Dr amaya in the office on SATURDAY Return to the ER for additional bleeding
[2016-12-11 09:51] VITALS: TEMP 97.6; BMI 28.8
[2016-12-11] MEDS ORDERED: SODIUM CHLORIDE 1,000 ML IV STA (11:43)
[2016-12-11] MEDS ORDERED: SODIUM CHLORIDE 500 ML IV STA (13:50)
[2016-12-11 14:19] LABS: BASOPHIL 0.3 % (0-2.0); MCH 29.6 pg (25.7-33.7); MCHC 32.4 g/dl (32.0-35.9); MEAN CELL VOLUME 91.2 fl (80-96); MEAN PLT VOLUME 9.3 fl (7.5-11.1); NEUTROPHILS 88.5 % (42.8-82.8); PLATELET COUNT 256 K/MM3 (134-434); RDW 14.9 % (11.9-15.9); WHITE BLOOD COUNT 16.2 K/mm3 (4.0-10.0)
[2016-12-11 14:44] LABS: CALCIUM 8.3 mg/dL (8.5-10.1)
[2016-12-11 14:46] LABS: TROPONIN I < 0.02 ng/ml (0.00-0.05)
[2016-12-11 16:01] VITALS: BP 151/81; PULSE 104
== END 2016-12-11 16:01 | disposition home or self-care (01) ==
LOC: JER 09:40
PROC: 3E0337Z Introduction of Electrolytic and Water Balance Substance into Peripheral Vein, Percutaneous Approach (ICD-10-PCS; principal; 2016-12-11)
DX: I95.1 Orthostatic hypotension (principal); R04.0 Epistaxis; I25.10 Atherosclerotic heart disease of native coronary artery without angina pectoris; Z95.5 Presence of coronary angioplasty implant and graft; I25.2 Old myocardial infarction
CPT/HCPCS: 36415; 80048; 82550; 82553; 84484; 85025; 99282-25

== ENCOUNTER 2019-09-02 18:03 | Emergency (ER) | payer BC ==
[2019-09-02 18:28] VITALS: TEMP 97.5; BMI 26.9
--- NOTE | 2019-09-02 18:40 | PDOC ---
Attending Attestation - Resident Resident Name: Santosh Hines - ED Attending Attestation I have performed the following: I have examined & evaluated the patient, The case was reviewed & discussed with the resident, I agree w/resident's findings & plan, Exceptions are as noted - HPI HPI: 09/02/19 18:55 64yo M hx CAD, [place] (2013) s/p cardiac stents (x2) and HL Presents the emergency department with nausea and lightheadedness since 3 PM today. Patient relates his symptoms to eating a umaña salad. REports multiple episodes of dry heaving but no vomiting. Also reports mild epigastric pain. Describes his lightheadedness as feeling "woozy" and that it's made worse by looking upwards. Denies room spinning. He denies any chest pain or shortness of breath. Of note, pt reports reflux like symptoms when he had his 2 stents put in, did not have CP or SOB at the time. He denies associated, weakness/numbness, fevers, chillls , cough, diarrhea, LE edema, urinary sxs. - Physicial Exam PE: 09/02/19 18:58 Agree with resident exam - Medical Decision Making 09/02/19 19:16 64yo M hx CAD s/p stent x2 presents to the ED with epigastric discomfort, nausea and lightheadedness. Pt with hx of CT and stent placement after similar atypical sxs. As such, cardiac w/u initiated. EKG unchanged with inferior Q waves likely from old CT. Plan for labs including trops, XR Case signed out to Dr. Ray for f/u diagnostics, reassessment, dispo
--- NOTE | 2019-09-02 18:48 | PDOC ---
History of Present Illness - General Chief Complaint: Nausea Stated Complaint: NAUSEA AFTER EATING NO VOMITING Time Seen by Provider: 09/02/19 18:14 History Source: Patient Exam Limitations: No Limitations - History of Present Illness Initial Comments: 09/02/19 18:58 64 yo M with a hx of CAD, HI (2013) s/p 2x stents, and HLD presents to the emergency department with lightheadedness with nausea. Per the patient, he had sudden onset of lightheadedness when working today (walks a fair amount for his profession). He denies trauma to the head. Concurrently, he has been nauseous with burping like sensation (regurgitating his lunch of umaña salad) since the onset of the lightheadedness. Denies dizziness. Denies the following: Fevers, chills, SOB, chest pain, eye/ears/nose/throat pain, recent sick contacts, palpitations, abdominal pain, dysuria, hematuria, diarrhea, and leg pain/ swelling. Allergies: NKDA Past History - Past Medical History Allergies/Adverse Reactions: Allergies Allergy/AdvReac Type Severity Reaction Status Date / Time No Known Allergies Allergy Verified 09/02/19 18:05 Home Medications: Ambulatory Orders Atorvastatin Ca [Lipitor] 20 mg PO DAILY 10/31/16 Lisinopril [Zestril] 2.5 mg PO DAILY 10/31/16 Metoprolol Succinate [Toprol Xl -] 25 mg PO DAILY 10/31/16 Aspirin [Aspirin EC] 81 mg PO ASDIR 12/09/16 Cholecalciferol (Vitamin D3) [Vitamin D] 4,000 unit PO DAILY 09/02/19 Cyanocobalamin [Vitamin B12 -] 1 tab SL DAILY 09/02/19 Anemia: No Asthma: No Cancer: No Cardiac Disorders: Yes (HI 01/2014) CVA: No COPD: No CHF: No Dementia: No Diabetes: No GI Disorders: No Disorders: No HTN: No Hypercholesterolemia: Yes Liver Disease: No Seizures: No Thyroid Disease: No - Surgical History Abdominal Surgery: No Appendectomy: No Cardiac Surgery: Yes (STENTS X2 S/P HI) Cholecystectomy: No Lung Surgery: No Neurologic Surgery: No Orthopedic Surgery: No - Psycho Social/Smoking Cessation Hx Smoking History: Never smoked Have you smoked in the past 12 months: No Hx Alcohol Use: No Drug/Substance Use Hx: No Substance Use Type: None Review of Systems - Review of Systems Able to Perform ROS?: Yes Is the patient limited Swazi proficient: No Constitutional: No: Chills, Diaphoresis, Fever, Weakness HEENTM: No: Eye Pain, Ear Pain, Nose Pain, Throat Pain Respiratory: No: Cough, Shortness of Breath, Hemoptysis Cardiac (ROS): Yes: Lightheadedness. No: Chest Pain, Irregular Heart Rate, Palpitations, Syncope ABD/GI: Yes: Nausea. No: Constipated, Diarrhea, Poor Appetite, Rectal Bleeding , Vomiting, Tarry Stools : No: Burning, Dysuria, Hematuria, Incontinence Musculoskeletal: No: Back Pain, Joint Pain, Neck Pain Integumentary: No: Bruising, Erythema, Rash Neurological: No: Headache, Numbness, Tingling, Tremors Psychiatric: No: Change in Appetite Endocrine: No: Unexplained Weight Gain Hematologic/Lymphatic: No: Anemia *Physical Exam - Physical Exam General Appearance: Yes: Nourished, Appropriately Dressed. No: Apparent Distress, Intoxicated HEENT: positive: EOMI, MARISSA, Normal Voice, Symmetrical, Pharynx Normal, Hearing Grossly Normal. negative: Pale Conjunctivae, Scleral Icterus (R), Scleral Icterus (L), Muffled/Hoarse voice, Pharyngeal Erythema, Tonsillar Exudate, Tonsillar Erythema, Nasal Congestion, Rhinorrhea, Sinus Tenderness, Excessive drooling Neck: positive: Trachea midline, Supple. negative: Tender, Lymphadenopathy (R) , Lymphadenopathy (L), Tender lateral, Tender midline Respiratory/Chest: positive: Lungs Clear, Normal Breath Sounds. negative: Chest Tender, Respiratory Distress, Accessory Muscle Use Cardiovascular: positive: Regular Rhythm, Regular Rate, S1, S2. negative: Systolic Murmur Gastrointestinal/Abdominal: positive: Normal Bowel Sounds, Flat, Soft. negative : Tender Lymphatic: negative: Adenopathy Musculoskeletal: positive: Normal Inspection. negative: CVA Tenderness, Vertebral Tenderness Extremity: positive: Normal Capillary Refill, Normal Inspection, Normal Range of Motion. negative: Tender, Swelling, Calf Tenderness Integumentary: positive: Normal Color, Dry, Warm. negative: Rash, Swelling, Ecchymosis Neurologic: positive: instrument mechanic II-XII NML intact, Fully Oriented, Alert, Normal Mood/ Affect Medical Decision Making - Medical Decision Making 09/02/19 19:02 64 yo M with a hx of CAD, HI (2013) s/p 2x stents, and HLD presents to the emergency department with lightheadedness with nausea. Initial vitals: Initial Vital Signs Temp Pulse Resp BP Pulse Ox 97.5 F L 90 18 147/91 100 09/02/19 18:05 09/02/19 18:05 09/02/19 18:05 09/02/19 18:05 09/02/19 18:05 Work up:" ddx: patient presents with nausea with burping with concurrent lightheadedness. given cardiac history, will obtain trop to rule out NSTEMI. Patient's EKG is largely unchanged from his previous. NSR without ST elevations or depressions. Will obtain cbc and cmp. ROSALINA hinojosa ordered for nausea control. Patient to be signed out to night team. Discharge - Discharge Information Problems reviewed: Yes Clinical Impression/Diagnosis: Lightheadedness, Nausea Condition: Stable - Follow up/Referral Referrals: Rolo Archer MD [Primary Care Provider] - - Patient Discharge Instructions - Post Discharge Activity
[2019-09-02] MEDS ORDERED: ONDANSETRON *ODT* 4 MG TABLET SL ONE (18:54)
[2019-09-02] MEDS ORDERED: ONDANSETRON *ODT* 4 MG TABLET ONE (18:59)
[2019-09-02 19:22] LABS: BASO % 0.5 % (0-2.0); EOS % 0.7 % (0-4.5); HEMATOCRIT 44.5 % (35.4-49); LYMPH % 16.6 % (8-40); MCH 30.5 pg (25.7-33.7); MCHC 33.8 g/dl (32.0-35.9); MEAN CELL VOLUME 90.2 fl (80-96); MEAN PLT VOLUME 9.4 fl (7.5-11.1); MONO % 4.8 % (3.8-10.2); NEUT % 77.4 % (42.8-82.8); PLATELET COUNT 230 K/MM3 (134-434); RBC 4.93 M/mm3 (4.00-5.60); RDW 12.5 % (11.9-15.9)
[2019-09-02 19:27] LABS: ALBUMIN 4.4 g/dl (3.4-5.0); BILIRUBIN,TOTAL 1.2 mg/dl (0.2-1); CALCIUM 8.8 mg/dl (8.5-10); CREATININE 0.9 mg/dl (0.55-1.3); POTASSIUM 3.8 mmol/L (3.5-5.1)
--- NOTE | 2019-09-02 19:41 | PDOC ---
*Physical Exam - Vital Signs Last Vital Signs Temp Pulse Resp BP Pulse Ox 97.5 F L 90 18 147/91 100 09/02/19 18:05 09/02/19 18:05 09/02/19 18:05 09/02/19 18:05 09/02/19 18:05 ED Treatment Course - LABORATORY CBC & Chemistry Diagram: 09/02/19 18:55 09/02/19 18:55 - ADDITIONAL ORDERS Additional order review: Laboratory Results 09/02/19 09/02/19 18:55 18:55 Sodium 136 Potassium 3.8 Chloride 105 Carbon Dioxide 21 Anion Gap 10 BUN 19.0 H Creatinine 0.9 Est GFR (CKD-EPI)AfAm 104.24 Est GFR (CKD-EPI)NonAf 89.94 Random Glucose 119 H Calcium 8.8 Total Bilirubin 1.2 H AST 26 ALT 24 Alkaline Phosphatase 59 Troponin I < 0.03 Total Protein 7.0 Albumin 4.4 09/02/19 18:55 RBC 4.93 MCV 90.2 MCHC 33.8 RDW 12.5 MPV 9.4 Neutrophils % 77.4 Lymphocytes % 16.6 D Monocytes % 4.8 Eosinophils % 0.7 Basophils % 0.5 - Medications Given in the ED: ED Medications Discontinued Medications Generic Name Dose Route Start Last Admin Trade Name Freq PRN Reason Stop Dose Admin Ondansetron HCl 4 mg 09/02/19 18:54 09/02/19 19:00 Zofran Odt - SL 09/02/19 18:55 4 mg ONCE ONE Administration Medical Decision Making - Medical Decision Making Care of this patient received from . Patient's nausea was markedly improved after Zofran ODT. No new symptoms developed. Second troponin drawn at approximately 10:15 PM: Not elevated at less than 0.03 Patient discharged with recommendation of follow-up with his general doctor ( Dr. Archer) within the next 48 hours. Patient states that he will call him tomorrow and likely see him within the next day. The patient has any further persistent nausea or experiences chest pain/ shortness of breath/diaphoresis in the interim, he should return to the ER. Discharge - Discharge Information Problems reviewed: Yes Clinical Impression/Diagnosis: Lightheadedness, Nausea Condition: Stable Disposition: HOME - Follow up/Referral Referrals: Rolo Archer MD [Primary Care Provider] - 24 hours - Patient Discharge Instructions Patient Printed Discharge Instructions: DI for Nausea -- Adult Additional Instructions: Follow-up with Dr. Archer tomorrow as planned Light diet for the next few days Return here if you have any further nausea/vomiting or experience abdominal pain , fever, chest pain, shortness of breath - Post Discharge Activity
[2019-09-02 22:59] VITALS: BP 147/90; PULSE 85
--- NOTE | 2019-09-03 12:41 | EKG ---
Test Reason : Blood Pressure : / mmHG Vent. Rate : 087 BPM Atrial Rate : 087 BPM P-R Int : 142 ms QRS Dur : 094 ms QT Int : 394 ms P-R-T Axes : 064 -07 030 degrees QTc Int : 474 ms NORMAL SINUS RHYTHM POSSIBLE LATERAL INFARCT , AGE UNDETERMINED INFERIOR INFARCT (CITED ON OR BEFORE 01-FEB-2015) ABNORMAL ECG WHEN COMPARED WITH ECG OF 31-OCT-2016 15:41, NO SIGNIFICANT CHANGE WAS FOUND Confirmed by ALEJANDRA FARNCO MD ([id number]) on 09/03/2019 12:41:07 PM Referred By: MD ATKINSON Confirmed By:ALEJANDRA FRANCO MD
== END 2019-09-02 23:00 | disposition home or self-care (01) ==
LOC: FER 18:03
DX: Z95.5 Presence of coronary angioplasty implant and graft (principal); E78.5 Hyperlipidemia, unspecified; I25.2 Old myocardial infarction; I25.10 Atherosclerotic heart disease of native coronary artery without angina pectoris; E78.00 Pure hypercholesterolemia, unspecified
CPT/HCPCS: 36415; 80053; 82550; 82553; 84484; 85025; 93005; 99284-25; Q0162

== ENCOUNTER 2023-11-30 12:56 | Emergency (ER) | payer OTHER, BC ==
[2023-11-30 13:13] VITALS: BP 134/75; PULSE 93; RESP 16; TEMP 98.5; BMI 25.4
== END 2023-11-30 15:00 | disposition home or self-care (01) ==
LOC: FER 12:56
DX: R31.9 Hematuria, unspecified (principal); N20.0 Calculus of kidney
CPT/HCPCS: 74176-TC; 81003; 81015; 99284-25

== ENCOUNTER 2024-08-03 04:08 | Day surgery (SDC) | payer OTHER, BC ==
[2024-07-29 15:38] VITALS: BMI 25.5
[2024-08-03 11:39] VITALS: RESP 18
[2024-08-03] MEDS ORDERED: MIDAZOLAM HCL 2 MG/2 ML SINGLE DOSE VIAL ONE (13:33)
[2024-08-03 14:40] VITALS: BP 112/73; PULSE 84; TEMP 97.7
== END 2024-08-03 14:50 | disposition home or self-care (01) ==
LOC: JASU-SURG 04:08
PROVIDERS: ATTEND Urology
PROC: 0TF4XZZ Fragmentation in Left Kidney Pelvis, External Approach (ICD-10-PCS; principal; 2024-08-03 13:30)
DX: N20.0 Calculus of kidney (principal)